=== PATIENT | male | born 1940 | race Caucasian/White ===

== ENCOUNTER 2018-02-06 12:54 | Outpatient (CLI) | payer MEDICARE, OTHER ==
[~2018-02-06 12:54] MED LIST: ASPI-611 PO; CANA100T PO; FISH OIL PO; FLUO40CA PO; GLIM4TAB79 PO; OMEP20CA10 PO; SIMV20TA5 PO; vitamin D3 PO
[2018-02-06] MEDS ORDERED: BARIUM SULFATE 340 ML SUSP.RECON***PROCEDURE AREA ONLY**DONT ENTER PO ONE ×3 (12:56→13:49)
== END 2018-02-06 23:59 | disposition home or self-care (01) ==
LOC: RAD 12:54
PROVIDERS: ATTEND Otolaryngology
DX: K21.9 Gastro-esophageal reflux disease without esophagitis (principal); R13.14 Dysphagia, pharyngoesophageal phase; E11.9 Type 2 diabetes mellitus without complications; Z87.891 Personal history of nicotine dependence; Z79.82 Long term (current) use of aspirin; Z96.652 Presence of left artificial knee joint
CPT/HCPCS: 74220; 74230

== ENCOUNTER 2019-03-13 06:38 | Emergency (ER) | payer MEDICARE, OTHER ==
[~2019-03-13] VITALS: Ht 167.6 cm; Wt 91.0 kg
[~2019-03-13 06:38] MED LIST changes: +GLIM4TAB4 PO; -GLIM4TAB79 PO; -OMEP20CA10 PO; +OMEP20CA11 PO
[2019-03-13] MEDS ORDERED: morphine 4 MG/ML inj SYRINge IV PRN (06:45)
[2019-03-13] MEDS ORDERED: ondansetron/PF 4mg/2ml inj IV ONE (06:45)
[2019-03-13] MEDS ORDERED: normal saline 1000ML IV soln IVB ONE ×2 (06:45→08:25)
[2019-03-13 07:25] LABS: BASOPHILS % (AUTO) 0.2 % (0-1); EOSINOPHILS % (AUTO) 0 % (0-6); HEMOGLOBIN 13.6 g/dl (14.0-17.9); LYMPHOCYTES # (AUTO) 0.8 X10'3 (1.1-4.8); NEUTROPHILS # (AUTO) 8.7 X10'3 (1.8-7.7); RED CELL DISTRIBUTION WIDTH 14.1 % (11.5-14.5)
[2019-03-13 07:27] LABS: HEMATOCRIT 39.7 % (42.0-52.0); MEAN CORPUSCULAR HEMOGLOBIN 32.9 PG (27.0-31.0); MEAN CORPUSCULAR HGB CONC 34.2 g/dL (33.0-36.5); MEAN CORPUSCULAR VOLUME 96.4 FL (78-98); MONOCYTES # (AUTO) 0.3 X10'3 (0-0.9); MONOCYTES % (AUTO) 3.3 % (2-12); NEUTROPHILS % (AUTO) 88.5 % (42-75); PLATELET COUNT 243 X10'3 (140-440); RED BLOOD COUNT 4.12 X10'6 (4.70-6.10); WHITE BLOOD COUNT 9.8 X10'3 (4.5-11.0)
[2019-03-13 07:31] LABS: CLARITY,URINE CLEAR (Clear); COLOR,URINE YELLOW (Yellow); GLUCOSE, URINE >=1000 mg/dl (Neg); KETONES,URINE 15 mg/dl (Neg); LEUKOCYTE ESTERASE ,URINE NEGATIVE (Neg); NITRITES, URINE NEGATIVE (Neg); OCCULT BLOOD,URINE SMALL (Neg); PH,URINE 5.5 (4.8-8.0); PROTEIN,URINE NEGATIVE (Neg); UROBILINOGEN,URINE 0.2 E.U/dL (0.2-1.0)
[2019-03-13 07:36] LABS: UA COLLECTION TYPE URINAL
[2019-03-13 07:37] LABS: SQUAMOUS EPITHELIAL CELL,UR FEW /LPF (FEW)
[2019-03-13 07:38] LABS: BACTERIA,URINE FEW /HPF (Neg); WBC,URINE 0-4 /HPF (0-4)
[2019-03-13 07:40] LABS: ALANINE AMINOTRANSFERASE 31 U/L (12-78); ALBUMIN 3.6 G/DL (3.4-5.0); ALKALINE PHOSPHATASE 110 IU/L (46-116); ANION GAP 9 (8-16); ASPARTATE AMINO TRANSFERASE 21 U/L (10-37); BILIRUBIN,TOTAL 0.6 MG/DL (0.1-1.0); BLOOD UREA NITROGEN 20 MG/DL (7-18); BUN/CREATININE RATIO 13.6 (5.4-32.0); CALCIUM 8.7 MG/DL (8.5-10.1); CHLORIDE 106 MMOL/L (99-107); CREATININE 1.47 MG/DL (0.60-1.10); GLUCOSE 285 MG/DL (70-104); LIPASE 76 U/L (73-393); POTASSIUM 4.6 MMOL/L (3.5-5.1); SODIUM 140 MMOL/L (135-145); TOTAL CARBON DIOXIDE 24.9 MMOL/L (24-32); TOTAL PROTEIN 7.1 G/DL (6.4-8.2); eGFR 46 ML/MIN
[2019-03-13 07:54] LABS: LARGE PLATELETS FEW; PLATELET ESTIMATE NORMAL
[2019-03-13] MEDS ORDERED: ketorolac tromethamine 15mg/ml inj. IV ONE (08:25)
[2019-03-13] MEDS ORDERED: tamsulosin 0.4mg capsule PO ONE (08:25)
[2019-03-13 09:59] VITALS: BP 150/77
--- NOTE | 2019-03-13 09:59 | NUR ---
pt ambulated approximately 50-75 feet with no complaints of dizzness/nausea/vertigo.
[2019-03-13] MEDS ORDERED: HYDR-4383 PO (10:20)
== END 2019-03-13 10:37 | disposition home or self-care (01) ==
LOC: ER 06:38
DX: N23 Unspecified renal colic (principal); E11.9 Type 2 diabetes mellitus without complications; Z90.49 Acquired absence of other specified parts of digestive tract; Z98.890 Other specified postprocedural states; Z79.82 Long term (current) use of aspirin; Z79.899 Other long term (current) drug therapy
CPT/HCPCS: 36415; 74176; 80053; 81001; 83690; 85025; 96361; 96374; 96375; 99284; J1885; J2270; J2405; J7030